=== PATIENT | male | born 1955 | race Two or more races ===

== ENCOUNTER 2020-01-17 05:47 | Inpatient (IN) | payer BC ==
[~2020-01-17] VITALS: Ht 175.3 cm; Wt 78.9 kg
[2020-01-17] VITALS (15 sets, daily range): BP systolic 106–138; BP diastolic 58–77
[~2020-01-17 05:47] MED LIST: ATORVASTATIN CA20 MG ORAL; BENAZEPRIL HCL10 MG ORAL; METFORMIN HCL500 M1 ORAL
[2020-01-17] MEDS ORDERED: ceFAZolin sod 1 GM in NS 55 ML IVPB ONE (07:00)
[2020-01-17] MEDS ORDERED: Rocuronium Bromide 100mg/10ml Inj IV ONE (07:15)
[2020-01-17] MEDS ORDERED: Midazolam 2mg/2ml Inj ONE (07:19)
[2020-01-17] MEDS ORDERED: Morphine Sulfate 10mg/ml Inj ONE (07:20)
[2020-01-17] MEDS ORDERED: NS Irrig 1000ml ONE (07:30)
[2020-01-17] MEDS ORDERED: LR 1000ml ONE (07:30)
[2020-01-17] MEDS ORDERED: Glycopyrrolate 0.2mg/ml 1ml Vial ONE ×2 (07:30→08:21)
[2020-01-17] MEDS ORDERED: Sterile Water Irrig 1000ml IRRIG ONE (07:30)
[2020-01-17] MEDS ORDERED: Bupivacaine 0.5% Inj 30 ml vial INJ ONE (07:39)
[2020-01-17] MEDS ORDERED: Bupivacaine w/Epi 0.5% 30ml Vial INJ ONE (07:39)
[2020-01-17] MEDS ORDERED: Neostigmine 1mg/ml 10ml Inj ONE (08:21)
[2020-01-17] MEDS ORDERED: Lidocaine 1% MPF 10mg/ml 5ml ONE (08:21)
[2020-01-17] MEDS ORDERED: Metoclopramide 10mg/2ml Inj ONE (08:21)
[2020-01-17] MEDS ORDERED: Phenylephrine 10mg/ml Vial ONE (08:21)
[2020-01-17] MEDS ORDERED: ePHEDrine 50mg/ml Inj ONE (08:21)
[2020-01-17] MEDS ORDERED: Acetaminophen (Non formulary) 100 ML IV ONE (08:45)
[2020-01-17] MEDS ORDERED: fentaNYL 100 mcg/2 mL IV PRN (08:49)
[2020-01-17] MEDS ORDERED: Hydromorphone 0.5mg/0.5ml inj IVP PRN (08:49)
[2020-01-17] MEDS ORDERED: DiphenhydrAMINE 50mg/ml Inj IVP PRN (08:51)
[2020-01-17] MEDS ORDERED: fentaNYL 100 mcg/2 mL IV ONE (08:53)
--- NOTE | 2020-01-17 09:09 | Pre-Procedure Note/Attestation ---
Pre-Procedure Note/Attestation Complete Prior to Procedure Planned Procedure: left Procedure Narrative: Left laparoscopic radical vs partial nephrectomy Indications for Procedure Pre-Operative Diagnosis: renal mass Attestation I attest that I discussed the nature of the procedure; its benefits; risks and complications; and alternatives (and the risks and benefits of such alternatives ), prior to the procedure, with the patient (or the patient's legal guest experience representative). I attest that, if there was a reasonable possibility of needing a blood transfusion, the patient (or the patient's legal guest experience representative) was given the [facility] standardized written summary, pursuant to the [place] Blood Safety Act ([place] Health and Safety Code # 1645, as amended). I attest that I re-evaluated the patient just prior to the surgery and that there has been no change in the patient's H&P, except as documented below: Charly Call MD Jan 17, 2020 09:09
--- NOTE | 2020-01-17 09:10 | Brief Operative Note ---
Immediate Post Operative Note Operative Note Pre-op Diagnosis: renal mass Procedure: left laparoscopic radical nephrectomy Post-op Diagnosis: same Post-op Diagnosis: same as pre-op Surgeon: Javan call Anesthesia: general Specimen: yes Complications: none Condition: stable Fluids: 1000 Estimated Blood Loss: minimal Drains: none Implant(s) used?: No Charly Call MD Jan 17, 2020 09:10
--- NOTE | 2020-01-17 09:14 | Immediate Post-Op Evaluation ---
Immediate Post-Op Evalulation Immediate Post-Op Evalulation Procedure: radical nephrectomy left Date of Evaluation: Jan 17, 2020 Time of Evaluation: 09:13 IV Fluids: 1800 Blood Products: Estimated Blood Loss: 10 Urinary Output: 150 Blood Pressure Systolic: 122 Blood Pressure Diastolic: 72 Pulse Rate: 70 Respiratory Rate: 14 O2 Sat by Pulse Oximetry: 99 Temperature (Fahrenheit): 97.9 Nausea: No Vomiting: No Patient Status: awake, reacts, patent Hydration Status: adequate Drug: ancef Given Within 1 Hr of Incision: Yes Time Given: 07:45 Isabela Acosta CRNA Jan 17, 2020 09:14
[2020-01-17 09:34] LABS: HEMATOCRIT 38.5 % (42.0-52.0); HEMOGLOBIN 13.3 G/DL (14.2-18.0); MEAN CORPUSCULAR VOLUME 87 FL (80-99); PLATELET COUNT 270 K/UL (150-450); RED BLOOD COUNT 4.41 M/UL (4.70-6.10); RED CELL DISTRIBUTION WIDTH 11.6 % (11.6-14.8)
[2020-01-17 09:44] LABS: ANION GAP 8 mmol/L (5-15); BLOOD UREA NITROGEN 25 mg/dL (7-18); CALCIUM 8.3 MG/DL (8.5-10.1); CARBON DIOXIDE 28 MMOL/L (21-32); CHLORIDE 106 MMOL/L (98-107); CREATININE 1.7 MG/DL (0.55-1.30); POTASSIUM 4.3 MMOL/L (3.5-5.1); SODIUM 142 MMOL/L (136-145)
--- NOTE | 2020-01-17 10:30 | NUR ---
NURSE NOTES: Patient arrived on unit via hospital bed. Stable. Denies pain or SOB. Breathing is even and unlabored. Surgical dressings c/d/i. F/C in place and secured to leg. Patient oriented to room, call light and unit. Patient is in bed in locked and lowest position with call light within reach. All safety measures provided. Will continue to monitor.
--- NOTE | 2020-01-17 10:31 | NUR ---
*-* NO INSURANCE INFORMATION TO WHOM TO SEND CLINICALS OR REVIEWS *-*
[2020-01-17] MEDS ORDERED: HYDROmorphone 1mg/ml Carpuject IVP PRN (10:53)
--- NOTE | 2020-01-17 11:00 | NUR ---
NURSE NOTES: I/S at bedside. RT came to visit patient.
--- NOTE | 2020-01-17 12:06 | Anethesia Preoperative Eval ---
Anesthesia Pre-op PMH/ROS General Date of Evaluation: Jan 17, 2020 Time of Evaluation: 07:20 Anesthesiologist: maria isabel ASA Score: ASA 2 Mallampati Score Class I : Soft palate, uvula, fauces, pillars visible Class II: Soft palate, uvula, fauces visible Class III: Soft palate, base of uvula visible Class IV: Only hard plate visible Mallampati Classification: Class III Surgeon: masood Diagnosis: renal mass Surgical Procedure: laparoscopic total nephrectomy Anesthesia History: none Family History: no anesthesia problems Allergies: Coded Allergies: No Known Allergies (Unverified , 01/17/20) Medications: see eMAR Patient NPO?: Yes NPO Date: Jan 17, 2020 NPO Time: 00:01 Past Medical History Cardiovascular: Reports: HTN; Denies: CAD, ND, valve dz, arrhythmia, other Pulmonary: Denies: asthma, COPD, OMA, other Gastrointestinal/Genitourinary: Denies: GERD, CRI, ESRD, other Neurologic/Psychiatric: Denies: dementia, CVA, depression/anxiety, TIA, other Endocrine: Reports: DM; Denies: hypothyroidism, steroids, other HEENT: Reports: cataract (R) Hematology/Immune: Denies: anemia, bleeding disorder, other Musculoskeletal/Integumentary: Denies: OA, RA, DJD, DDD, edema, other PSxH Narrative: see chart Anesthesia Pre-op Phys. Exam Physician Exam Last Vital Signs Date Time Temp Pulse Resp B/P (MAP) Pulse Ox O2 Delivery O2 Flow Rate FiO2 01/17/20 12:00 98.1 62 18 125/72 (89) 98 01/17/20 10:10 Nasal Cannula 3 Constitutional: NAD Neurologic: CN 2-12 intact Cardiovascular: RRR Respiratory: CTA Gastrointestinal: S/NT/ND Airway Exam Mallampati Classification 3 Mallampati Score: Class III MO: full Neck: thick ROM: full Dentures: no upper, no lower Anesthesia Pre-op A/P Labs Hematology Test 01/17/20 09:28 White Blood Count 14.0 K/UL (4.8-10.8) H Red Blood Count 4.41 M/UL (4.70-6.10) L Hemoglobin 13.3 G/DL (14.2-18.0) L Hematocrit 38.5 % (42.0-52.0) L Mean Corpuscular Volume 87 FL (80-99) Mean Corpuscular Hemoglobin 30.2 PG (27.0-31.0) Mean Corpuscular Hemoglobin Concent 34.6 G/DL (32.0-36.0) Red Cell Distribution Width 11.6 % (11.6-14.8) Platelet Count 270 K/UL (150-450) Mean Platelet Volume 6.9 FL (6.5-10.1) Neutrophils (%) (Auto) % (45.0-75.0) Lymphocytes (%) (Auto) % (20.0-45.0) Monocytes (%) (Auto) % (1.0-10.0) Eosinophils (%) (Auto) % (0.0-3.0) Basophils (%) (Auto) % (0.0-2.0) Differential Total Cells Counted 100 Neutrophils % (Manual) 60 % (45-75) Lymphocytes % (Manual) 32 % (20-45) Monocytes % (Manual) 3 % (1-10) Eosinophils % (Manual) 5 % (0-3) H Basophils % (Manual) 0 % (0-2) Band Neutrophils 0 % (0-8) Platelet Estimate Adequate Platelet Morphology Normal Red Blood Cell Morphology Normal Chemistry Test 01/17/20 09:28 Sodium Level 142 MMOL/L (136-145) Potassium Level 4.3 MMOL/L (3.5-5.1) Chloride Level 106 MMOL/L (98-107) Carbon Dioxide Level 28 MMOL/L (21-32) Anion Gap 8 mmol/L (5-15) Blood Urea Nitrogen 25 mg/dL (7-18) H Creatinine 1.7 MG/DL (0.55-1.30) H Estimat Glomerular Filtration Rate 40.9 mL/min (>60) Glucose Level 129 MG/DL (74-106) H Calcium Level 8.3 MG/DL (8.5-10.1) L Studies Pre-op Studies: EKG - sr Risk Assessment & Plan Assessment: denies any changes in health Plan: general Pre-Antibiotics Drug: ancef Given Within 1 Hr of Incision: Yes Time Given: 07:40 Isabela Acosta CRNA Jan 17, 2020 12:06
[2020-01-17] MEDS: D5 1/2NS w/KCl 20mEq 1,000 ML IV SCH ×2 (12:14→21:36)
--- NOTE | 2020-01-17 14:00 | NUR ---
NURSE NOTES: Patient appears more awake. Denies pain at this time. Breathing is even and unlabored.
--- NOTE | 2020-01-17 14:01 | NUR ---
*-* INSURANCE *-* ALL AVAILABLE CLINICALS HAVE BEEN FAXED TO: [employer] Ref# [id number] #[phone] fax#[phone] & [facility] ph#[phone] fax#[phone]
--- NOTE | 2020-01-17 14:43 | NUR ---
CASE MANAGEMENT:INITIAL REVIEW 64 YR OLD MALE FROM HOME FOR SCHEDULED SURGERY SI;LAPAROSCOPIC RADICAL NEPHRECTOMY 97.3 59 18 132/72 97 ON RA WBC 14.0 BUN 25 CR 1.7 BG 129 CA 8.3 IS;LAPAROSCOPIC RADICAL NEPHRECTOMY IVF D5W @ 100 ML/HR CEFAZOLIN IV Q8 HRS ADMITTED TO MED SURG MED SURG STATUS DCP;FROM HOME
[2020-01-17] MEDS: Docusate 100mg cap ORAL SCH (17:55)
[2020-01-17] MEDS: ceFAZolin sod 1 GM in D5W 55 ML IV SCH (17:55)
--- NOTE | 2020-01-17 19:21 | NUR ---
HAND-OFF: Report given to Miles CRUM. Patient is stable.
--- NOTE | 2020-01-17 19:30 | NUR ---
NURSE NOTES: Received patient in no apparent distress. A&OX4. NC 2L on. Educated IS, patient fully understood. IV site patent and intact. Surgical dressing on abdomen noted, dry and intact. Euceda draining well by gravity. Bed in lowest position. Call light within reach. Will continue to monitor.
[2020-01-17] MEDS ORDERED: metFORMIN 500mg tab ORAL SCH (21:00)
--- NOTE | 2020-01-17 21:30 | Operative Note - Dictated ---
DATE OF OPERATION: 01/17/2020 PREOPERATIVE DIAGNOSIS: Left renal mass. POSTOPERATIVE DIAGNOSIS: Left renal mass. OPERATION: Left laparoscopic radical nephrectomy. OPERATED BY: Charly Call MD. ANESTHESIA: General. FINDINGS: Upper pole 3 cm renal mass extending into the perinephric fat. INDICATIONS FOR SURGERY: Patient had incidental findings on the CAT scan with left renal mass. Treatment options were explained to him in great length including partial versus total nephrectomy, bleeding, RI, PE, and he signed a consent. DESCRIPTION OF PROCEDURE: Brought to the operating room, placed in left lateral decubital position, prepped and draped in standard fashion under general anesthesia. A 7 cm incision was made in the subxiphoid area in the midline and hand port was placed. After that, two 12 mm trocars were placed. Exploratory laparoscopy was performed showing some bowel adhesions as well as liver and spleen was normal. Dissection started with mobilization of descending colon and exposure of the left renal fossa. Gerota fascia was opened and kidney was carefully exposed. There were multiple adhesions of the renal capsule from the surrounding fat and kidney was quite large in size. After exposure of the upper pole, it became evident that the tumor was extending into the perinephric fat as well as renal parenchyma. I made a decision to remove the kidney to make sure that there was no residual cancer. The ureter was dissected from the surrounding adhesions, clipped, and severed with Endo-CHUCKY. We dissected towards the renal pedicle, which was also severed a transection with Endo-CHUCKY. There was no evidence of bleeding. Adrenal was partially preserved. Kidney was removed with surrounding fat for pathologic examination. Some additional hemostasis. Surgicel and FloSeal was placed into the area of the adrenal. There was no evidence of bleeding. was intact. Bowel was placed into its normal position. Kidney was removed. Sponge count, instrument count was correct. Estimated blood loss was approximately 20 mL. Charly Call M.D. DR: ALAN JOB#: [id number] CC:
[2020-01-17] MEDS: Atorvastatin 20mg tab ORAL SCH (21:35)
[2020-01-17] MEDS: HYDROcodone/Acetamin 10/325 tab ORAL PRN (21:51)
[2020-01-18] VITALS: BP 109/60
[2020-01-18] MEDS: ceFAZolin sod 1 GM in D5W 55 ML IV SCH (01:53)
[2020-01-18 04:00] VITALS: BP 115/58
[2020-01-18 06:21] LABS: BASOPHILS % (AUTO) 0.6 % (0.0-2.0); EOSINOPHILS % (AUTO) 1.5 % (0.0-3.0); HEMATOCRIT 34.4 % (42.0-52.0); HEMOGLOBIN 12.1 G/DL (14.2-18.0); MEAN CORPUSCULAR VOLUME 87 FL (80-99); MONOCYTES % (AUTO) 7.1 % (1.0-10.0); NEUTROPHILS % (AUTO) 74.8 % (45.0-75.0); PLATELET COUNT 236 K/UL (150-450); RED BLOOD COUNT 3.97 M/UL (4.70-6.10); RED CELL DISTRIBUTION WIDTH 11.3 % (11.6-14.8)
[2020-01-18 07:13] LABS: ANION GAP 11 mmol/L (5-15); BLOOD UREA NITROGEN 22 mg/dL (7-18); CALCIUM 7.5 MG/DL (8.5-10.1); CARBON DIOXIDE 22 MMOL/L (21-32); CHLORIDE 104 MMOL/L (98-107); CREATININE 2.5 MG/DL (0.55-1.30); POTASSIUM 4.4 MMOL/L (3.5-5.1); SODIUM 137 MMOL/L (136-145)
--- NOTE | 2020-01-18 07:14 | NUR ---
HAND-OFF: Report given to Wilma CRUM. VS stable. Bed in lowest position. Call light within reach. will continue to monitor.
--- NOTE | 2020-01-18 07:39 | NUR ---
NURSE NOTES: Received report from Miles CRUM. Patient is awake and oriented, in no apparent distress, reporting discomfort in abdomen, patient stated "it feels like I did a thousand sit ups", pain medication offered but patient refused pain medication at this time. On 2L NC. Surgical site dressings clean, dry, intact. Euceda to gravity drainage, draining clear, yellow urine. IVF running per order. Patient updated on plan of care for the day. Side rails upx2, bed low and locked, call light within reach.
[2020-01-18 08:00] VITALS: BP 112/65
[2020-01-18] MEDS: D5 1/2NS w/KCl 20mEq 1,000 ML IV SCH ×2 (08:44→17:38)
[2020-01-18] MEDS: Benazepril 10mg tab ORAL SCH (08:44)
[2020-01-18] MEDS: Docusate 100mg cap ORAL SCH ×2 (08:44→17:38)
--- NOTE | 2020-01-18 08:44 | 48 Hour Post Anesthesia Eval ---
Post Anesthesia Evaluation Procedure: radical nephrectomy left Date of Evaluation: Jan 18, 2020 Time of Evaluation: 08:44 Blood Pressure Systolic: 112 0: 65 Pulse Rate: 70 Respiratory Rate: 14 Temperature (Fahrenheit): 97.5 O2 Sat by Pulse Oximetry: 96 Airway: patent Nausea: No Vomiting: No Pain Intensity: 4 Hydration Status: adequate Cardiopulmonary Status: stable Mental Status/LOC: patient returned to baseline Post-Anesthesia Complications: none Follow-up care needed: N/A Isabela Acosta CRNA Jan 18, 2020 08:44
--- NOTE | 2020-01-18 09:15 | NUR ---
PT EVALUATION Caridad.Gianna. order received for PT evaluation and treatment. PT eval and treatment completed. Patient was pre-medicated with pain meds prior to treatment. Patient required min A with bed mobility and transfers with cues on proper log roll technique for OOB transfers. Patient used FWW with gait x 30feet due to heavy guarding of trunk mobility s/p left radical nephrectomy. Patient requested to sit up in bedside chair and left up in chair with call light at side. Instructed to call RN for assist BTB. RN notified and made aware that patient is up in a chair. Patient will benefit from PT to regain independence with functional mobility. Patient to be seen daily 5x/wk for 2 weeks and throughout length of stay. Patient was independent with all ADL's and ambulatory without A.D as PLOF. Patient most likely will be discharged home with cleared by Mick. Thank you for this referral.
[2020-01-18] MEDS: HYDROcodone/Acetamin 10/325 tab ORAL PRN (09:47)
[2020-01-18 12:00] VITALS: BP 104/56
--- NOTE | 2020-01-18 14:38 | NUR ---
NURSE NOTES: Received call from Dr. Call. Order received to d/c peñaloza catheter and advance to clear liquid diet tomorrow for breakfast. All orders read back and entered.
--- NOTE | 2020-01-18 15:02 | NUR ---
CASE MANAGEMENT: REVIEW 01/18/20 SI: S/P LEFT LAPAROSCOPIC RADICAL NEPHRECTOMY 97.3 59 18 132/72 97 ON RA WBC 11.0 BUN 22 CR 2.5 BG 121 CA 7.5 IS:IVF D5W @ 100 ML/HR LOTENSIN PO QD NORCO Q4HR/PRN \: 3E MED SURG STATUS DCP:FROM HOME PLAN: STAR ON CLEAR DIET ADVANCING TOLERATED PT EVAL AND THERAPY
[2020-01-18 16:00] VITALS: BP 117/68
--- NOTE | 2020-01-18 16:20 | NUR ---
NURSE NOTES: Euceda catheter removed per MD order, patient tolerated well. Patient provided with urinal and educated to inform RN when he voids.
--- NOTE | 2020-01-18 16:28 | Consultation ---
History of Present Illness General Date patient seen: Jan 18, 2020 Present Illness HPI 64 year old male s/p Left laparoscopic radical nephrectomy currently admitted for post op noted to have leukocytosis, pain, and decreased appetite. surgery called to evaluate post op. patient seen, chart reviewed, patient examined. no emesis. not hungry. no flatus. no bm. abd examined. labs noted. h/h noted Allergies: Coded Allergies: No Known Allergies (Unverified , 01/17/20) COVID-19 Screening Contact w/high risk pt: No Recent Travel to affected area: No Experienced COVID-19 symptoms?: No Medication History Scheduled Atorvastatin Calcium* (Atorvastatin Calcium*), 20 MG ORAL BEDTIME, (Reported) Benazepril Hcl* (Benazepril Hcl*), 10 MG ORAL DAILY, (Reported) Metformin Hcl* (Metformin Hcl*), 500 MG ORAL DAILY, (Reported) Patient History History Provided By: Patient, Medical Record, PMD Healthcare decision maker N Resuscitation status Advanced Directive on File Past Medical/Surgical History Past Medical/Surgical History: (1) Left Renal mass Review of Systems Review of Symptoms General ROS: no weight loss or fever Psychological ROS: no depression or mood changes, no memory loss Ophthalmic ROS: no visual changes or eye irritation ENT ROS: no nasal congestion, hearing loss, dizziness Allergy and Immunology ROS: no allergic symptoms or urticaria Hematological and Lymphatic ROS: no swollen glands, unusual bleeding or bruising Endocrine ROS: no polyuria, polydipsia, weight changes, temperature intolerance Respiratory ROS: no cough, shortness of breath, or wheezing Cardiovascular ROS: no chest pain or dyspnea on exertion Gastrointestinal ROS: abdominal pain, bright red blood in stool. Musculoskeletal ROS: no myalgias or arthralgias Neurological ROS: no TIA or stroke symptoms Dermatological ROS: no new or changing skin lesions, rashes or pruritis Physical Exam Physical Exam General appearance: alert, cooperative, no distress, appears stated age Head: Normocephalic, without obvious abnormality, atraumatic Eyes: conjunctivae/corneas clear. PERRL, EOM's intact. Fundi benign Throat: Lips, mucosa, and tongue normal. Teeth and gums normal Neck: supple, symmetrical, trachea midline, no adenopathy, thyroid: not enlarged, symmetric, no tenderness/mass/nodules, no carotid bruit and no JVD Lungs: clear to auscultation bilaterally Heart: regular rate and rhythm, S1, S2 normal, no murmur, click, rub or gallop Abdomen: soft, mild-tender. Bowel sounds decreased. No masses, no organomegaly. mild distention, wound c/d/i Extremities: extremities normal, atraumatic, no cyanosis or edema Pulses: 2+ and symmetric Skin: Skin color, texture, turgor normal. No rashes or lesions Neurologic: Grossly normal Last 24 Hour Vital Signs Date Time Temp Pulse Resp B/P (MAP) Pulse Ox O2 Delivery O2 Flow Rate FiO2 01/18/20 12:00 99.2 82 16 104/56 (72) 95 01/18/20 09:00 Room Air 01/18/20 08:44 112/65 01/18/20 08:44 70 14 96 01/18/20 08:00 98.1 82 16 112/65 (81) 96 01/18/20 04:00 97.4 80 16 115/58 (77) 95 01/18/20 00:00 97.1 85 17 109/60 (76) 95 01/17/20 21:00 Nasal Cannula 2.0 01/17/20 20:00 98.1 86 16 113/61 (78) 96 Intake and Output 01/17/20 01/18/20 19:00 07:00 Intake Total 2150 ml 1055 ml Output Total 200 ml 900 ml Balance 1950 ml 155 ml Intake IV Total 2150 ml 1055 ml Output Urine Total 150 ml 900 ml Estimated Blood Loss 50 ml # Voids 1 Laboratory Tests Test 01/18/20 05:00 White Blood Count 11.0 K/UL (4.8-10.8) H Red Blood Count 3.97 M/UL (4.70-6.10) L Hemoglobin 12.1 G/DL (14.2-18.0) L Hematocrit 34.4 % (42.0-52.0) L Mean Corpuscular Volume 87 FL (80-99) Mean Corpuscular Hemoglobin 30.5 PG (27.0-31.0) Mean Corpuscular Hemoglobin Concent 35.1 G/DL (32.0-36.0) Red Cell Distribution Width 11.3 % (11.6-14.8) L Platelet Count 236 K/UL (150-450) Mean Platelet Volume 7.3 FL (6.5-10.1) Neutrophils (%) (Auto) 74.8 % (45.0-75.0) Lymphocytes (%) (Auto) 16.0 % (20.0-45.0) L Monocytes (%) (Auto) 7.1 % (1.0-10.0) Eosinophils (%) (Auto) 1.5 % (0.0-3.0) Basophils (%) (Auto) 0.6 % (0.0-2.0) Sodium Level 137 MMOL/L (136-145) Potassium Level 4.4 MMOL/L (3.5-5.1) Chloride Level 104 MMOL/L (98-107) Carbon Dioxide Level 22 MMOL/L (21-32) Anion Gap 11 mmol/L (5-15) Blood Urea Nitrogen 22 mg/dL (7-18) H Creatinine 2.5 MG/DL (0.55-1.30) H Estimat Glomerular Filtration Rate 26.2 mL/min (>60) Glucose Level 121 MG/DL (74-106) H Calcium Level 7.5 MG/DL (8.5-10.1) L Height (Feet): 5 Height (Inches): 9.00 Weight (Pounds): 180 Medications Current Medications Medications (Trade) Dose Ordered Sig/Sendy Route PRN Reason Start Time Stop Time Status Last Admin Dose Admin Acetaminophen (Tylenol) 650 mg Q4H PRN ORAL FEVER 01/17/20 10:51 02/16/20 10:50 Acetaminophen (Tylenol) 650 mg Q6H PRN ORAL Mild Pain (Pain Scale 1-3) 01/17/20 10:51 02/16/20 10:50 Acetaminophen/ Hydrocodone Bitart ([place] 10/325) 1 tab Q4H PRN ORAL Mod pain(4-6) 01/17/20 10:54 01/24/20 10:53 01/18/20 09:47 Atorvastatin Calcium (Lipitor) 20 mg BEDTIME ORAL 01/17/20 21:00 04/16/20 20:59 01/17/20 21:35 Benazepril HCl (Lotensin) 10 mg DAILY ORAL 01/18/20 09:00 02/17/20 08:59 01/18/20 08:44 Dextrose/ Electrolytes 1,000 ml @ 100 mls/hr Q10H IV 01/17/20 12:00 02/16/20 11:59 01/18/20 08:44 Docusate Sodium (Colace) 100 mg TWICE A DAY ORAL 01/17/20 18:00 02/16/20 17:59 01/18/20 08:44 Hydromorphone HCl (Dilaudid) 1 mg Q3H PRN IVP pain score 7-10 01/17/20 10:53 01/24/20 10:52 Ondansetron HCl (Zofran) 4 mg Q6H PRN IVP Nausea & Vomiting 01/17/20 10:51 02/16/20 10:50 Temazepam (RestoriL) 7.5 mg QHS PRN ORAL Insomnia 01/17/20 21:00 01/24/20 20:59 Assessment/Plan Problem List: (1) Left Renal mass Assessment & Plan: 64M s/p Left laparoscopic radical nephrectomy. recovering h/h mild decrease unlikely post op bleed abd pain stable and anticipated post op and likely ileus no n/v/f/c leukocytosis reactive not hungry as anticipated cont current care plan will monitor abd exam thank you will follow with recs plan to remove peñaloza today will trial diet Hero Bennett Jan 18, 2020 16:28
--- NOTE | 2020-01-18 17:02 | NUR ---
*-* INSURANCE *-* UPDATED CLINICALS AND REVIEWS HAVE BEEN FAXED TO: Norberto Ref# [id number] #[phone] fax#[phone] & [facility] ph#[phone] fax#[phone]
--- NOTE | 2020-01-18 19:03 | NUR ---
HAND-OFF: Report given to Miles CRUM. Patient is in stable condition. Addendum: 01/18/20 at 1906 by Wilma Aviles RN Add: Endorsed to Miles CRUM that patient to start clear liquid diet tomorrow at breakfast.
--- NOTE | 2020-01-18 19:15 | Consultation ---
DATE OF CONSULTATION: 01/18/2020 INTERNAL MEDICINE CONSULTATION CONSULTING PHYSICIAN: Sridhar Szymanski MD. HISTORY OF PRESENT ILLNESS: This is a 64-year-old male with a past history only of hypertension and previous cataracts who was admitted to the hospital for nephrectomy. Patient underwent successful surgery yesterday by Dr. Charly Call. The surgery was uncomplicated. There was an upper pole 3 cm mass, which was removed. Patient did well postoperatively and currently is seen in the surgical unit. He states he has no appetite and he is not hungry. He has mild bowel sounds. Currently he is NPO. PAST HISTORY: Hypertension. PREVIOUS SURGERIES: Cataract removal. HOME MEDICATIONS: Reviewed reconciled in chart. PHYSICAL EXAMINATION: GENERAL: Reveals a 64-year-old male. VITAL SIGNS: Blood pressure is 130/60, heart rate 84, respiratory 18. HEENT: Unremarkable. LUNGS: Clear breath sounds bilaterally. ABDOMEN: Soft. EXTREMITIES: There is no edema. NEUROLOGIC: Nonfocal. LABORATORY DATA: Lab testing is notable for white count 11,000, hemoglobin of 12, otherwise normal CBC and BMP. Creatinine this morning is 2.5. IMPRESSION: 1. Status post left nephrectomy. 2. Renal dysfunction. 3. Hypertension. DISCUSSION: Continue pain medications. Keep NPO at this time. I will discontinue metformin given his renal dysfunction. Continue pain medications, IV fluids. We will follow carefully. Sridhar Szymanski M.D. DR: CELINE JOB#: [id number] CC:
--- NOTE | 2020-01-18 19:30 | NUR ---
NURSE NOTES: Received patient in no apparent distress. A&OX4. NC 2L on. IV site patent and intact. Surgical dressing on abdomen noted, dry and intact. Bed in lowest position. Call light within reach. Will continue to monitor.
[2020-01-18 20:00] VITALS: BP 126/68
[2020-01-18] MEDS: Atorvastatin 20mg tab ORAL SCH (21:00)
[2020-01-19] VITALS: BP 119/67
[2020-01-19 04:00] VITALS: BP 121/70
[2020-01-19] MEDS: D5 1/2NS w/KCl 20mEq 1,000 ML IV SCH ×2 (04:07→14:02)
[2020-01-19 06:21] LABS: BASOPHILS % (AUTO) 0.7 % (0.0-2.0); EOSINOPHILS % (AUTO) 2.5 % (0.0-3.0); HEMATOCRIT 35.9 % (42.0-52.0); HEMOGLOBIN 12.8 G/DL (14.2-18.0); LYMPHOCYTES % (AUTO) 20.5 % (20.0-45.0); MEAN CORPUSCULAR VOLUME 87 FL (80-99); MONOCYTES % (AUTO) 6.3 % (1.0-10.0); PLATELET COUNT 237 K/UL (150-450); RED BLOOD COUNT 4.14 M/UL (4.70-6.10); RED CELL DISTRIBUTION WIDTH 10.9 % (11.6-14.8); WHITE BLOOD COUNT 10.7 K/UL (4.8-10.8)
[2020-01-19 06:31] LABS: ANION GAP 7 mmol/L (5-15); BLOOD UREA NITROGEN 20 mg/dL (7-18); CALCIUM 8.5 MG/DL (8.5-10.1); CARBON DIOXIDE 27 MMOL/L (21-32); CHLORIDE 103 MMOL/L (98-107); CREATININE 2.7 MG/DL (0.55-1.30); POTASSIUM 4.9 MMOL/L (3.5-5.1); SODIUM 137 MMOL/L (136-145)
--- NOTE | 2020-01-19 07:31 | NUR ---
HAND-OFF: Report given to Wilma CRUM. VS stable. Bed in lowest position. Call light within reach. Will continue to monitor.
--- NOTE | 2020-01-19 07:56 | NUR ---
NURSE NOTES: Received report from Miles CRUM. Patient is asleep during rounds, in no apparent distress, RR even and unlabored. IVF running via right hand IV, SCD's on. Side rails upx2, bed low and locked, call light within reach.
[2020-01-19 08:00] VITALS: BP 122/68
[2020-01-19] MEDS: Benazepril 10mg tab ORAL SCH (08:45)
[2020-01-19] MEDS: Docusate 100mg cap ORAL SCH ×2 (08:45→18:14)
--- NOTE | 2020-01-19 09:23 | NUR ---
PT DISCHARGE NOTE Patient is at independent/supervised level for all functional mobility. Skilled inpatient PT intervention no longer indicated, patient discharged from PT. Wilma CRUM notified, patient is safe to function with nursing supervision. Addendum: 01/19/20 at 0924 by MAXINE WONG PT Amended: Links added.
--- NOTE | 2020-01-19 11:04 | NUR ---
CASE MANAGEMENT: REVIEW 01/18/20 SI: S/P LEFT LAPAROSCOPIC RADICAL NEPHRECTOMY 98.1 80 16 122/68 95% ON RA BUN 20 CR 2.7 BG 118 IS:IVF D5W @ 100 ML/HR LOTENSIN PO QD NORCO Q4HR/PRN LIPITOR PO QHS \: 3E MED SURG STATUS DCP:HOME WHEN STABLE PLAN: STAR ON CLEAR DIET ADVANCING TOLERATED PT EVAL AND THERAPY
--- NOTE | 2020-01-19 11:18 | NUR ---
*-* INSURANCE *-* UPDATED CLINICALS AND REVIEWS HAVE BEEN FAXED TO: [employer]ber[employer] Ref# [id number] #[phone] fax#[phone] & [facility] ph#[phone] fax#[phone]
--- NOTE | 2020-01-19 11:55 | Pulmonology Progress Note ---
Subjective Interval Events: none Constitutional: Reports: no symptoms HEENT: Repors: no symptoms Respiratory: Reports: no symptoms Cardiovascular: Reports: no symptoms Gastrointestinal/Abdominal: Reports: no symptoms Allergies: Coded Allergies: No Known Allergies (Unverified , 01/17/20) Objective Last 24 Hour Vital Signs Date Time Temp Pulse Resp B/P (MAP) Pulse Ox O2 Delivery O2 Flow Rate FiO2 01/19/20 09:00 Room Air 01/19/20 08:45 122/68 01/19/20 08:00 98.1 80 16 122/68 (86) 95 01/19/20 04:00 98.2 88 17 121/70 (87) 94 01/19/20 00:00 98.3 88 17 119/67 (84) 94 01/18/20 21:00 Room Air 01/18/20 20:00 98.2 90 16 126/68 (87) 94 01/18/20 16:00 97.4 94 16 117/68 (84) 94 01/18/20 12:00 99.2 82 16 104/56 (72) 95 Intake and Output 01/18/20 01/19/20 19:00 07:00 Intake Total 1200 ml 1000 ml Output Total 700 ml 800 ml Balance 500 ml 200 ml Intake IV Total 1200 ml 1000 ml Output Urine Total 700 ml 800 ml # Voids 1 3 General Appearance: no acute distress HEENT: normocephalic Respiratory: chest wall non-tender, lungs clear Cardiovascular: normal peripheral pulses Abdomen: normal bowel sounds Microbiology Date/Time Source Procedure Growth Status 01/17/20 06:17 Nasal Nares MRSA Culture - Final NO METHICILLIN RESISTANT STAPH AUREUS... Complete Laboratory Tests 01/19/20 04:50: White Blood Count 10.7, Red Blood Count 4.14L, Hemoglobin 12.8L, Hematocrit 35.9L, Mean Corpuscular Volume 87, Mean Corpuscular Hemoglobin 30.8, Mean Corpuscular Hemoglobin Concent 35.5, Red Cell Distribution Width 10.9L, Platelet Count 237, Mean Platelet Volume 7.4, Neutrophils (%) (Auto) 70.0, Lymphocytes (%) (Auto) 20.5, Monocytes (%) (Auto) 6.3, Eosinophils (%) (Auto) 2.5, Basophils (%) (Auto) 0.7, Sodium Level 137, Potassium Level 4.9, Chloride Level 103, Carbon Dioxide Level 27, Anion Gap 7, Blood Urea Nitrogen 20H, Creatinine 2.7H, Estimat Glomerular Filtration Rate 24.0, Glucose Level 118H, Calcium Level 8.5 Current Medications Medications (Trade) Dose Ordered Sig/Sendy Route PRN Reason Start Time Stop Time Status Last Admin Dose Admin Acetaminophen (Tylenol) 650 mg Q4H PRN ORAL FEVER 01/17/20 10:51 02/16/20 10:50 Acetaminophen (Tylenol) 650 mg Q6H PRN ORAL Mild Pain (Pain Scale 1-3) 01/17/20 10:51 02/16/20 10:50 Acetaminophen/ Hydrocodone Bitart ([place] 10/325) 1 tab Q4H PRN ORAL Mod pain(4-6) 01/17/20 10:54 01/24/20 10:53 01/18/20 09:47 Atorvastatin Calcium (Lipitor) 20 mg BEDTIME ORAL 01/17/20 21:00 04/16/20 20:59 01/18/20 21:00 Benazepril HCl (Lotensin) 10 mg DAILY ORAL 01/18/20 09:00 02/17/20 08:59 01/19/20 08:45 Dextrose/ Electrolytes 1,000 ml @ 100 mls/hr Q10H IV 01/17/20 12:00 02/16/20 11:59 01/19/20 04:07 Docusate Sodium (Colace) 100 mg TWICE A DAY ORAL 01/17/20 18:00 02/16/20 17:59 01/19/20 08:45 Hydromorphone HCl (Dilaudid) 1 mg Q3H PRN IVP pain score 7-10 01/17/20 10:53 01/24/20 10:52 Ondansetron HCl (Zofran) 4 mg Q6H PRN IVP Nausea & Vomiting 01/17/20 10:51 02/16/20 10:50 Temazepam (RestoriL) 7.5 mg QHS PRN ORAL Insomnia 01/17/20 21:00 01/24/20 20:59 Assessment/Plan Assessment/Plan IMPRESSION: 1. Status post left nephrectomy. 2. Renal dysfunction. 3. Hypertension. DISCUSSION: Continue pain medications. CLear liquid diet Continue pain medications, IV fluids. I will follow carefully. Jostin Kramer Omar Syed PR Jan 19, 2020 11:54
[2020-01-19 12:00] VITALS: BP 140/81
--- NOTE | 2020-01-19 14:49 | Surgery Progress Note ---
Surgery Progress Note Subjective Additional Comments leukocytosis resolved h/h stable cr elevated seen by renal comfortable pain improved Objective Last 24 Hour Vital Signs Date Time Temp Pulse Resp B/P (MAP) Pulse Ox O2 Delivery O2 Flow Rate FiO2 01/19/20 12:00 97.9 85 16 140/81 (100) 95 01/19/20 09:00 Room Air 01/19/20 08:45 122/68 01/19/20 08:00 98.1 80 16 122/68 (86) 95 01/19/20 04:00 98.2 88 17 121/70 (87) 94 01/19/20 00:00 98.3 88 17 119/67 (84) 94 01/18/20 21:00 Room Air 01/18/20 20:00 98.2 90 16 126/68 (87) 94 01/18/20 16:00 97.4 94 16 117/68 (84) 94 I&O Intake and Output 01/18/20 01/19/20 18:59 06:59 Intake Total 1100 ml 1100 ml Output Total 650 ml 850 ml Balance 450 ml 250 ml Intake IV Total 1100 ml 1100 ml Output Urine Total 650 ml 850 ml # Voids 4 Dressing: other Wound: other Drains: other Cardiovascular: RSR Respiratory: decreased breath sounds Abdomen: soft, non-tender, present bowel sounds Extremities: no cyanosis Laboratory Tests Test 01/19/20 04:50 White Blood Count 10.7 K/UL (4.8-10.8) Red Blood Count 4.14 M/UL (4.70-6.10) L Hemoglobin 12.8 G/DL (14.2-18.0) L Hematocrit 35.9 % (42.0-52.0) L Mean Corpuscular Volume 87 FL (80-99) Mean Corpuscular Hemoglobin 30.8 PG (27.0-31.0) Mean Corpuscular Hemoglobin Concent 35.5 G/DL (32.0-36.0) Red Cell Distribution Width 10.9 % (11.6-14.8) L Platelet Count 237 K/UL (150-450) Mean Platelet Volume 7.4 FL (6.5-10.1) Neutrophils (%) (Auto) 70.0 % (45.0-75.0) Lymphocytes (%) (Auto) 20.5 % (20.0-45.0) Monocytes (%) (Auto) 6.3 % (1.0-10.0) Eosinophils (%) (Auto) 2.5 % (0.0-3.0) Basophils (%) (Auto) 0.7 % (0.0-2.0) Sodium Level 137 MMOL/L (136-145) Potassium Level 4.9 MMOL/L (3.5-5.1) Chloride Level 103 MMOL/L (98-107) Carbon Dioxide Level 27 MMOL/L (21-32) Anion Gap 7 mmol/L (5-15) Blood Urea Nitrogen 20 mg/dL (7-18) H Creatinine 2.7 MG/DL (0.55-1.30) H Estimat Glomerular Filtration Rate 24.0 mL/min (>60) Glucose Level 118 MG/DL (74-106) H Calcium Level 8.5 MG/DL (8.5-10.1) Plan Problems: (1) Left Renal mass Assessment & Plan: 64M s/p Left laparoscopic radical nephrectomy. recovering h/h mild decrease unlikely post op bleed abd pain stable and anticipated post op and likely ileus no n/v/f/c leukocytosis reactive not hungry as anticipated cont current care plan will monitor abd exam thank you will follow with sharla peñaloza out good uop ambulatory pain improved AM labs possible d/c tomorrow Hero Bennett Jan 19, 2020 14:49
[2020-01-19 16:00] VITALS: BP 136/72
--- NOTE | 2020-01-19 19:30 | NUR ---
nurses note correction IV to left hand
--- NOTE | 2020-01-19 19:30 | NUR ---
Report given by Karen Pt alert awake and oriented x4 able to make needs known no acute distress noted pt denies pain at this time. IV to right hand infusing D5 0.45 %NSw/ KCL 20meq @ 100ml/hr patent intact. dressing to abdomen dry intact. pt void with no difficulty. bed in lowest position call light in reach. instructed pt to call for assistance. will continue to monitor for treatment and care as ordered.
--- NOTE | 2020-01-19 19:50 | NUR ---
HAND-OFF: Report given to Dorinda CRUM. Patient is in stable condition.
[2020-01-19 20:00] VITALS: BP 140/77
--- NOTE | 2020-01-19 20:15 | Consultation ---
DATE OF CONSULTATION: 01/19/2020 DATE OF ADMISSION: 01/17/2020 CONSULTING PHYSICIAN: Maycol Mendes MD. REASON FOR CONSULTATION: 1. Acute kidney injury. 2. Chronic kidney disease, stage 3. Baseline creatinine 1.7. REFERRING PHYSICIAN: Sridhar Szymanski MD. HISTORY OF PRESENT ILLNESS: The patient is a 64-year-old gentleman admitted on January 16 for left-sided total radical nephrectomy due to a left renal mass. Creatinine at the time of admission was 1.7. Currently, it is up to 2.7. No evidence of renal perfusion split on GFR scan. The patient is postoperatively doing well. The upper pole 3 cm mass from the left kidney along with the entire left kidney was removed 2 days prior. PAST MEDICAL HISTORY: 1. Hypertension. 2. Left renal mass. PREVIOUS SURGERIES: Cataract removal. CURRENT MEDICATIONS: Reviewed in medicine reconciliation list. FAMILY HISTORY: Positive for hypertension. REVIEW OF SYSTEMS: NEUROLOGIC: The patient denies headache, change in vision, syncope, or presyncopal episodes. CARDIOVASCULAR: No current chest pain, palpitations, or angina. PULMONARY: No difficulty breathing, productive cough, or sputum. GASTROINTESTINAL/GENITOURINARY: No change in urinary or bowel habits. No nausea, vomiting, or diarrhea. ENDOCRINOLOGY: No night sweats, fevers, or chills. MUSCULOSKELETAL: The patient is feeling weak, tired, and fatigued. LABORATORY DATA: Labs dated January 19, 2020, sodium 137, potassium 4.9, creatinine 2.7. Hemoglobin 12.8, white cell count 10.7, and platelet count 237,000. PHYSICAL EXAMINATION: VITAL SIGNS: Blood pressure 125/72, respiratory rate 18, pulse 62, temperature 98.1, and 98% oxygen saturation on room air. GENERAL: The patient is awake, alert, not otherwise in distress. HEENT: Extraocular muscles intact. No lymphadenopathy. CARDIOVASCULAR: S1, S2. No rubs or gallops. PULMONARY: Clear to auscultation bilaterally. No rales, rhonchi, or wheezes. ABDOMINAL: Tender. Decreased bowel sounds. EXTREMITIES: No edema. ASSESSMENT AND PLAN: 1. Acute kidney injury on chronic kidney disease stage 3B with no split on renal function scan and initiated creatinine of 1.7 and is now 50% reduced renal mass after a total left nephrectomy. Total residual renal function not entirely clear where it will plateau. At this point, we will discontinue his benazepril and start Norvasc. Continue IV fluids and avoid nephrotoxins. Conservative renal management at this time. 2. A 3 cm left renal mass has been removed during a total left nephrectomy on January 17, 2020. 3. Hypertension. We will discontinue benazepril due to worsening renal function and initiate Norvasc. Let me take this opportunity to thank Dr. Szymanski. I will continue to follow this patient on a daily basis. Maycol Mendes MD DR: [place] JOB#: [id number] CC:
[2020-01-19] MEDS: Atorvastatin 20mg tab ORAL SCH (21:20)
[2020-01-20] VITALS: BP 129/76
[2020-01-20] MEDS: D5 1/2NS w/KCl 20mEq 1,000 ML IV SCH ×2 (00:14→10:00)
[2020-01-20 04:00] VITALS: BP 119/71
[2020-01-20 07:09] LABS: ANION GAP 7 mmol/L (5-15); BLOOD UREA NITROGEN 19 mg/dL (7-18); CALCIUM 8.3 MG/DL (8.5-10.1); CARBON DIOXIDE 26 MMOL/L (21-32); CHLORIDE 105 MMOL/L (98-107); CREATININE 2.5 MG/DL (0.55-1.30); POTASSIUM 4.6 MMOL/L (3.5-5.1); SODIUM 138 MMOL/L (136-145)
[2020-01-20 07:11] LABS: EOSINOPHILS % (AUTO) 4.7 % (0.0-3.0); HEMATOCRIT 34.8 % (42.0-52.0); HEMOGLOBIN 12.5 G/DL (14.2-18.0); LYMPHOCYTES % (AUTO) 21.3 % (20.0-45.0); MEAN CORPUSCULAR VOLUME 86 FL (80-99); MONOCYTES % (AUTO) 7.4 % (1.0-10.0); NEUTROPHILS % (AUTO) 65.6 % (45.0-75.0); PLATELET COUNT 233 K/UL (150-450); RED BLOOD COUNT 4.04 M/UL (4.70-6.10); RED CELL DISTRIBUTION WIDTH 10.9 % (11.6-14.8); WHITE BLOOD COUNT 8.9 K/UL (4.8-10.8)
--- NOTE | 2020-01-20 07:38 | NUR ---
NURSE NOTES: Received report from SKYLA Seth. Patient A&Ox4. Sitting up in chair eating breakfast. On room air, no signs of distress or labored breathing. IV intact, patent, and infusing IV fluids. Call light with in reach. Will continue with plan of care.
--- NOTE | 2020-01-20 07:43 | NUR ---
Nurse Notes report given to Kirsten CRUM
[2020-01-20 08:00] VITALS: BP 123/79
--- NOTE | 2020-01-20 08:39 | Pulmonology Progress Note ---
Subjective Interval Events: none Constitutional: Reports: no symptoms HEENT: Repors: no symptoms Respiratory: Reports: no symptoms Cardiovascular: Reports: no symptoms Gastrointestinal/Abdominal: Reports: no symptoms Allergies: Coded Allergies: No Known Allergies (Unverified , 01/17/20) Objective Last 24 Hour Vital Signs Date Time Temp Pulse Resp B/P (MAP) Pulse Ox O2 Delivery O2 Flow Rate FiO2 01/20/20 04:00 98.1 80 22 119/71 (87) 94 01/20/20 00:00 97.8 84 22 129/76 (93) 98 01/19/20 21:00 Room Air 01/19/20 20:00 98.0 75 22 140/77 (98) 96 01/19/20 16:00 98.3 77 16 136/72 (93) 95 01/19/20 12:00 97.9 85 16 140/81 (100) 95 01/19/20 09:00 Room Air 01/19/20 08:45 122/68 Intake and Output 01/19/20 01/20/20 19:00 07:00 Intake Total 2000 ml 300 ml Output Total 1800 ml 450 ml Balance 200 ml -150 ml Intake Oral 800 ml 300 ml IV Total 1200 ml Output Urine Total 1800 ml 450 ml # Voids 2 General Appearance: no acute distress HEENT: normocephalic Respiratory: chest wall non-tender, lungs clear Cardiovascular: normal peripheral pulses Abdomen: normal bowel sounds Laboratory Tests 01/20/20 04:50: White Blood Count 8.9, Red Blood Count 4.04L, Hemoglobin 12.5L, Hematocrit 34.8L , Mean Corpuscular Volume 86, Mean Corpuscular Hemoglobin 30.8, Mean Corpuscular Hemoglobin Concent 35.8, Red Cell Distribution Width 10.9L, Platelet Count 233, Mean Platelet Volume 6.6, Neutrophils (%) (Auto) 65.6, Lymphocytes (%) (Auto) 21.3, Monocytes (%) (Auto) 7.4, Eosinophils (%) (Auto) 4.7H, Basophils (%) (Auto) 1.0, Sodium Level 138, Potassium Level 4.6, Chloride Level 105, Carbon Dioxide Level 26, Anion Gap 7, Blood Urea Nitrogen 19H, Creatinine 2.5H, Estimat Glomerular Filtration Rate 26.2, Glucose Level 106, Calcium Level 8.3L Current Medications Medications (Trade) Dose Ordered Sig/Sendy Route PRN Reason Start Time Stop Time Status Last Admin Dose Admin Acetaminophen (Tylenol) 650 mg Q4H PRN ORAL FEVER 01/17/20 10:51 02/16/20 10:50 Acetaminophen (Tylenol) 650 mg Q6H PRN ORAL Mild Pain (Pain Scale 1-3) 01/17/20 10:51 02/16/20 10:50 Acetaminophen/ Hydrocodone Bitart ([place] 10/325) 1 tab Q4H PRN ORAL Mod pain(4-6) 01/17/20 10:54 01/24/20 10:53 01/18/20 09:47 Amlodipine Besylate (Norvasc) 5 mg DAILY ORAL 01/20/20 09:00 02/19/20 08:59 Atorvastatin Calcium (Lipitor) 20 mg BEDTIME ORAL 01/17/20 21:00 04/16/20 20:59 01/19/20 21:20 Dextrose/ Electrolytes 1,000 ml @ 100 mls/hr Q10H IV 01/17/20 12:00 02/16/20 11:59 01/20/20 00:14 Docusate Sodium (Colace) 100 mg TWICE A DAY ORAL 01/17/20 18:00 02/16/20 17:59 01/19/20 18:14 Hydromorphone HCl (Dilaudid) 1 mg Q3H PRN IVP pain score 7-10 01/17/20 10:53 01/24/20 10:52 Ondansetron HCl (Zofran) 4 mg Q6H PRN IVP Nausea & Vomiting 01/17/20 10:51 02/16/20 10:50 Temazepam (RestoriL) 7.5 mg QHS PRN ORAL Insomnia 01/17/20 21:00 01/24/20 20:59 Assessment/Plan Assessment/Plan IMPRESSION: 1. Status post left nephrectomy. 2. Renal dysfunction. 3. Hypertension. DISCUSSION: Continue pain medications. Advance diet per surgery Dc planning Off benazepril; creatinine today 2.5 I will follow carefully. Jostin Kramermizi,Sridhar Dave MD Jan 20, 2020 08:39
[2020-01-20] MEDS: Docusate 100mg cap ORAL SCH (09:34)
--- NOTE | 2020-01-20 10:23 | Nephrology Progress Note ---
Assessment/Plan Assessment/Plan: A/P 1) LUPE on CKD 3B- BL Cr 1.7 - SARAN-I stopped post total left Nephrectomy - Cr down to 2.5 - continue IVfs 2) Left renal Mass- s/p tolat left radical nephrectomy 3) HTN- Benazapril changed to Norvasc Subjective Date patient seen: Jan 20, 2020 Time patient seen: 10:22 ROS Limited/Unobtainable: No Allergies: Coded Allergies: No Known Allergies (Unverified , 01/17/20) Subjective Patient in no overt distress Objective Last 24 Hour Vital Signs Date Time Temp Pulse Resp B/P (MAP) Pulse Ox O2 Delivery O2 Flow Rate FiO2 01/20/20 09:34 71 123/79 01/20/20 08:00 98.4 71 21 123/79 (94) 98 01/20/20 04:00 98.1 80 22 119/71 (87) 94 01/20/20 00:00 97.8 84 22 129/76 (93) 98 01/19/20 21:00 Room Air 01/19/20 20:00 98.0 75 22 140/77 (98) 96 01/19/20 16:00 98.3 77 16 136/72 (93) 95 01/19/20 12:00 97.9 85 16 140/81 (100) 95 Intake and Output 01/19/20 01/20/20 19:00 07:00 Intake Total 2000 ml 300 ml Output Total 1800 ml 450 ml Balance 200 ml -150 ml Intake Oral 800 ml 300 ml IV Total 1200 ml Output Urine Total 1800 ml 450 ml # Voids 2 Laboratory Tests 01/20/20 04:50: White Blood Count 8.9, Red Blood Count 4.04L, Hemoglobin 12.5L, Hematocrit 34.8L , Mean Corpuscular Volume 86, Mean Corpuscular Hemoglobin 30.8, Mean Corpuscular Hemoglobin Concent 35.8, Red Cell Distribution Width 10.9L, Platelet Count 233, Mean Platelet Volume 6.6, Neutrophils (%) (Auto) 65.6, Lymphocytes (%) (Auto) 21.3, Monocytes (%) (Auto) 7.4, Eosinophils (%) (Auto) 4.7H, Basophils (%) (Auto) 1.0, Sodium Level 138, Potassium Level 4.6, Chloride Level 105, Carbon Dioxide Level 26, Anion Gap 7, Blood Urea Nitrogen 19H, Creatinine 2.5H, Estimat Glomerular Filtration Rate 26.2, Glucose Level 106, Calcium Level 8.3L Height (Feet): 5 Height (Inches): 9.00 Weight (Pounds): 174 General Appearance: no apparent distress EENT: normal ENT inspection Neck: normal alignment Cardiovascular: regular rhythm Respiratory/Chest: lungs clear Abdomen: non tender, soft Edema: no edema noted Arm (L), no edema noted Arm (R), no edema noted Leg (L), no edema noted Leg (R), no edema noted Pedal (L), no edema noted Pedal (R), no edema noted Generalized Maycol Mendes MD Jan 20, 2020 10:23
[2020-01-20 12:00] VITALS: BP 118/70
--- NOTE | 2020-01-20 13:21 | NUR ---
CASE MANAGEMENT:REVIEW SI;S/P TOTAL LEFT LAPAROSCOPIC RADICAL NEPHRECTOMY 98.4 84 22 140/77 94% ON RA BUN 19 CR 2.5 CA 8.3 IS;NORVASC PO QD IVF D5W @ 100 ML/HR MED SURG STATUS DCP;PATIENT IS FROM HOME PLAN;[facility] DIET PAIN MANAGEMENT DC PLANNING
--- NOTE | 2020-01-20 13:53 | Surgery Progress Note ---
Surgery Progress Note Subjective Symptoms: improved, tolerating diet, voiding well, passing flatus Objective Last 24 Hour Vital Signs Date Time Temp Pulse Resp B/P (MAP) Pulse Ox O2 Delivery O2 Flow Rate FiO2 01/20/20 09:34 71 123/79 01/20/20 09:00 Room Air 01/20/20 08:00 98.4 71 21 123/79 (94) 98 01/20/20 04:00 98.1 80 22 119/71 (87) 94 01/20/20 00:00 97.8 84 22 129/76 (93) 98 01/19/20 21:00 Room Air 01/19/20 20:00 98.0 75 22 140/77 (98) 96 01/19/20 16:00 98.3 77 16 136/72 (93) 95 I&O Intake and Output 01/19/20 01/20/20 19:00 07:00 Intake Total 2000 ml 300 ml Output Total 1800 ml 450 ml Balance 200 ml -150 ml Intake Oral 800 ml 300 ml IV Total 1200 ml Output Urine Total 1800 ml 450 ml # Voids 2 Dressing: dry Wound: clean Cardiovascular: RSR Respiratory: clear Abdomen: soft, flat, non-tender, present bowel sounds, other Extremities: no edema, no tenderness, no cyanosis Laboratory Tests Test 01/20/20 04:50 White Blood Count 8.9 K/UL (4.8-10.8) Red Blood Count 4.04 M/UL (4.70-6.10) L Hemoglobin 12.5 G/DL (14.2-18.0) L Hematocrit 34.8 % (42.0-52.0) L Mean Corpuscular Volume 86 FL (80-99) Mean Corpuscular Hemoglobin 30.8 PG (27.0-31.0) Mean Corpuscular Hemoglobin Concent 35.8 G/DL (32.0-36.0) Red Cell Distribution Width 10.9 % (11.6-14.8) L Platelet Count 233 K/UL (150-450) Mean Platelet Volume 6.6 FL (6.5-10.1) Neutrophils (%) (Auto) 65.6 % (45.0-75.0) Lymphocytes (%) (Auto) 21.3 % (20.0-45.0) Monocytes (%) (Auto) 7.4 % (1.0-10.0) Eosinophils (%) (Auto) 4.7 % (0.0-3.0) H Basophils (%) (Auto) 1.0 % (0.0-2.0) Sodium Level 138 MMOL/L (136-145) Potassium Level 4.6 MMOL/L (3.5-5.1) Chloride Level 105 MMOL/L (98-107) Carbon Dioxide Level 26 MMOL/L (21-32) Anion Gap 7 mmol/L (5-15) Blood Urea Nitrogen 19 mg/dL (7-18) H Creatinine 2.5 MG/DL (0.55-1.30) H Estimat Glomerular Filtration Rate 26.2 mL/min (>60) Glucose Level 106 MG/DL (74-106) Calcium Level 8.3 MG/DL (8.5-10.1) L Plan Problems: (1) Left Renal mass Assessment & Plan: 64M s/p Left laparoscopic radical nephrectomy. recovering h/h mild decrease unlikely post op bleed abd pain stable and anticipated post op and likely ileus no n/v/f/c leukocytosis reactive not hungry as anticipated cont current care plan will monitor abd exam thank you will follow with sharla peñaloza out good uop ambulatory pain improved AM labs possible d/c tomorrow d/c home rx written labs improved exam stable f.u dr Timmons wednesday Hero Bennett Jan 20, 2020 13:53
[2020-01-20] MEDS ORDERED: NORVASC5 MG ORAL (13:55)
[2020-01-20] MEDS ORDERED: COLACE100 MG ORAL (13:55)
[2020-01-20 16:00] VITALS: BP 108/69
--- NOTE | 2020-01-20 16:35 | NUR ---
NURSE NOTES: Patient discharged home via private car with friend. Discharge protocol followed.
--- NOTE | 2020-01-21 22:26 | CDS Physician Query ---
Clarification is required for compliance, coding accuracy, and to reflect severity of illness for this patient Dear Dr. Hero Bennett M.D Date: 01/21/2020 Teaching Dietitian/CDS Name: Remigio Wallace 64-year-old gentleman admitted on January 16 for left-sided total radical nephrectomy due to a left renal mass. Creatinine at the time of admission was 1.7. Currently,it is up to 2.7. "Renal Failure" documented in CONSULTATION by Maycol Mendes MD 01/19/2020 as "Acute kidney injury on chronic kidney disease stage 3B" Clinical Finding Show: 01/16 01/17 01/18 09:28 05:00 04:50 Creatinine 1.7 2.5 2.7 BUN 25 22 20 GFR 40.9 26.2 24.0 Please Clarify the type of renal failure below: [] Acute Renal Failure w/ Tubular Necrosis [] Acute Renal Failure w/ Cortical Necrosis [] Acute Renal Failure w/ Medullary Necrosis [xxxXXX] Acute Renal Failure (unspecified) [] Other: Present on Admission: [XX] Yes [] No [] Clinically Undetermined Physician signature Date Please also document in your Progress Notes and/or Discharge Summary and indicate if the condition was present on admission. MTDD
--- NOTE | 2020-01-22 14:37 | NUR ---
*-* INSURANCE *-* UPDATED CLINICALS AND REVIEWS HAVE BEEN FAXED TO: ( NO DISCHARGE SUMMARY IN THE SYSTEM) [place] Ref# [id number] ph#[phone] fax#[phone] & [facility] ph#[phone] fax#[phone]
--- NOTE | 2020-01-22 15:12 | Discharge Summary ---
Discharge Summary Hospital Course Date of Admission Jan 17, 2020 at 05:47 Date of Discharge Jan 20, 2020 at 16:53 Admitting Diagnosis Left renal mass Reason for Hospitalization: Elective surgery HPI Klever Patel Jr is a 65 year old male , who was admitted on Jan 17, 2020 at 05:47 for Left Renal Mass. Patient was admitted for elective surgery Consultations Dr. Bennett -general surgeon Dr. Szymanski- [employer], human geography faculty member dr. Mendes- disposal worker Procedures s/p 01/17/[address] Call Left laparoscopic radical nephrectomy. Hospital Course patient admitted for elective surgery patient with a left renal mass , undergone on 01/16 left laparoscopic radical nephrectomy patient received intraoperative antibiotic, which continued pain management was addressed patient initially was kept n.p.o. urinary output was closely monitored along with the renal parameters patient was mobilized out of the bed as tolerated blood pressure was closely monitored and managed with existing antihypertensive regimen blood sugar was closely monitored bowel regimen instituted patient slowly started on diet and was advanced as tolerated leukocytosis resolved in 2 days. patient noted to have worsening renal failure from 01/16 to 01/17 creatinine from 1.7 tete to 2.5 nephrology consult was requested per disposal worker patient had acute kidney injury on chronic kidney disease stage IIIb SARAN inhibitor was discontinued patient started on calcium channel aldair, blood pressure remained stable IV fluids were continued nephrotoxic's were avoided disposal worker recommended conservative renal management at this time Euceda catheter was discontinued patient was able to void without difficulties patient clinically stabilized and was ready for discharge home discharge instruction provided. follow-up with surgeon in the office as advised FINAL DIAGNOSES Left renal mass Status post left nephrectomy Hypertension Acute kidney injury on chronic kidney disease stage IIIb s/p Left laparoscopic radical nephrectomy. Discharge Medications New Medications: Amlodipine Besylate (Norvasc) 5 Mg Tablet 5 MG ORAL DAILY for 30 Days, #30 TAB Docusate Sodium* (Colace*) 100 Mg Capsule 100 MG ORAL TWICE A DAY for 15 Days, #30 CAP Continued Medications: Atorvastatin Calcium* (Atorvastatin Calcium*) 20 Mg Tablet 20 MG ORAL BEDTIME for cholesterol, TAB (This prescription has been renewed) Metformin Hcl* (Metformin Hcl*) 500 Mg Tablet 500 MG ORAL DAILY for dm, TAB (This prescription has been renewed) Discontinued Medications: Benazepril Hcl* (Benazepril Hcl*) 10 Mg Tablet 10 MG ORAL DAILY for htn, TAB Discharge Condition Upon Discharge: stable Discharge Vital Signs Last Vital Signs Date Time Temp Pulse Resp B/P (MAP) Pulse Ox O2 Delivery O2 Flow Rate FiO2 01/20/20 16:00 97.1 84 19 108/69 (82) 97 01/20/20 09:00 Room Air 01/17/20 21:00 2.0 Discharge Disposition Patient was discharged home Discharge Instructions Discharge Instructions Special Instructions I have been assigned to complete a D/C Summary on this account. I was not involved in the patient management Elena Hurley NP Jan 22, 2020 15:12
--- NOTE | 2020-01-23 16:09 | NUR ---
*-* INSURANCE *-* DISCHARGE SUMMARY HAS BEEN FAXED TO: [facility] Ref# [id number] #[phone] fax#[phone] & [facility] ph#[phone] fax#[phone]
== END 2020-01-20 16:53 | disposition home or self-care (01) | DRG 657 ==
LOC: SDSOVERFLO 05:47 → 3E 10:25
PROC: 0TT14ZZ Resection of Left Kidney, Percutaneous Endoscopic Approach (ICD-10-PCS; principal; 2020-01-17 07:30)
PROC: 0GB24ZZ Excision of Left Adrenal Gland, Percutaneous Endoscopic Approach (ICD-10-PCS; principal; 2020-01-17 07:30)
DX: D49.512 Neoplasm of unspecified behavior of left kidney (principal); K56.7 Ileus, unspecified; N17.9 Acute kidney failure, unspecified; I12.9 Hypertensive chronic kidney disease with stage 1 through stage 4 chronic kidney disease, or unspecified chronic kidney disease; N18.3 Chronic kidney disease, stage 3 (moderate); E11.22 Type 2 diabetes mellitus with diabetic chronic kidney disease; E78.2 Mixed hyperlipidemia; Z79.84 Long term (current) use of oral hypoglycemic drugs
CPT/HCPCS: 36415; 80048; 82962; 85007; 85025; 86850; 86900; 86901; 87081; 94003; 94150; J2250; J2370; J2405; J2710; J2765